=== PATIENT | male | born 1930 | race Two or more races ===

== ENCOUNTER 2017-05-27 22:38 | Emergency (ER) | payer OTHER ==
[~2017-05-27] VITALS: Ht 182.9 cm; Wt 65.3 kg
--- NOTE | 2017-05-27 22:40 | NUR ---
pt bibra fr home for lt ear skin tear w/ lt shoulder pain, +deformity s/p fall fr shower xtoday, unknown ko. pt AOx1, confused w/ resp even & unlabored, hypertensive w/ facial grimacing w/ report pain on movement LUE. limited ROM noted to lt shoulder. pt in gown, on continuous monitoring. Dr. Gonzales at bedside for further eval. pt son at bedside.
--- NOTE | 2017-05-27 22:50 | NUR ---
CLAUDINE started, labs drawn & sent.
[2017-05-27] MEDS ORDERED: MORPHINE SULFATE INJ 2 MG/ML DISP.SYRIN IV ONE (23:00)
--- NOTE | 2017-05-27 23:01 | NUR ---
EMT at bedside for irrigation lt ear skin tear w/ NS.
[2017-05-27] MEDS ORDERED: MORPHINE SULFATE INJ 2 MG/ML DISP.SYRIN ONE (23:03)
[2017-05-27 23:10] LABS: BASOPHILS % (AUTO) 0.5 % (0.0-2.0); EOSINOPHILS # (AUTO) 0.1 /CMM (0.0-0.7); EOSINOPHILS % (AUTO) 1.8 % (0.0-6.0); HEMATOCRIT 40 % (39-51); HEMOGLOBIN 13.3 g/dL (13.5-17.5); LYMPHOCYTES # (AUTO) 2.8 /CMM (0.8-4.8); MEAN CORPUSCULAR HEMOGLOBIN 31 PG (26.0-33.0); MEAN CORPUSCULAR HGB CONC 33 g/dl (31.0-36.0); MEAN CORPUSCULAR VOLUME 93 fL (80-96); MONOCYTES # (AUTO) 0.5 /CMM (0.1-1.30); NEUTROPHILS # (AUTO) 3.8 /CMM (1.8-8.9); NEUTROPHILS % (AUTO) 52.7 % (43.0-81.0); PLATELET COUNT (AUTO) 137 /CMM (150-450); RDW COEFFICIENT OF VARIATION 15.1 (11.5-15.0); RED BLOOD CELL COUNT(AUTO) 4.35 MIL/uL (4.5-6.0); WHITE BLOOD COUNT (AUTO) 7.3 K/uL (4.3-11.0)
[2017-05-27 23:20] LABS: CALCIUM, SERUM 8.6 mg/dL (8.5-10.1); CARBON DIOXIDE 30 mmol/L (21-32); CHLORIDE 109 mmol/L (98-107); CREATININE 1.7 mg/dL (0.6-1.3); GLUCOSE 135 mg/dL (74-106); POTASSIUM 4.4 mmol/L (3.5-5.1); SODIUM SERUM 144 mmol/L (136-145); UREA NITROGEN, BLOOD 34 mg/dL (7-18)
[2017-05-27 23:23] LABS: INR 1.17 (0.87-1.13); PROTHROMBIN TIME 12.7 SECS (9.5-12.7)
--- NOTE | 2017-05-27 23:27 | NUR ---
CXR w/ XR lt shoulder at bedside.
[2017-05-27 23:29] LABS: TROPONIN I < 0.017 ng/mL (0.00-0.056)
--- NOTE | 2017-05-27 23:41 | NUR ---
pt sent to CT via [facility].
[2017-05-28] MEDS ORDERED: MORPHINE SULFATE INJ 2 MG/ML DISP.SYRIN IV ONE
--- NOTE | 2017-05-28 00:03 | NUR ---
pt back fr CT, unable to lie still for CT. MD notified.
[2017-05-28] MEDS ORDERED: MORPHINE SULFATE INJ 2 MG/ML DISP.SYRIN ONE (00:18)
[2017-05-28] MEDS ORDERED: HALOPERIDOL LACTATE INJ 5 MG/ML VIAL ONE (00:46)
--- NOTE | 2017-05-28 00:46 | NUR ---
pt continues to be restless, unable to lie still for CT. MD notified. Will medicate as ordered. On continous pulse-ox w/ cardiac monitoring. pt son at bedside.
--- NOTE | 2017-05-28 00:48 | NUR ---
Dr. Gonzales at bedside for application mily lt tympanic head lac.
[2017-05-28] MEDS ORDERED: HALOPERIDOL LACTATE INJ 5 MG/ML VIAL IM ONE (01:00)
--- NOTE | 2017-05-28 01:04 | NUR ---
pt resting comfortably in bed w/ resp even & unlabored, nad noted. Sent to CT via [employer].
--- NOTE | 2017-05-28 01:26 | NUR ---
pt back fr CT, resp even & unlabored, nad noted. On continuous monitoring.
--- NOTE | 2017-05-28 01:50 | NUR ---
PT SENT TO CT VIA [facility].
[2017-05-28] MEDS ORDERED: MIDAZOLAM HCL 2 MG/2ML VIAL ONE (01:57)
--- NOTE | 2017-05-28 01:57 | NUR ---
CALLED [facility] FOR DOCTOR TO DOCTOR
[2017-05-28] MEDS ORDERED: MIDAZOLAM HCL 2 MG/2ML VIAL IV ONE (02:00)
--- NOTE | 2017-05-28 02:02 | NUR ---
pt continues to be restless, unable to lie still for CT. MD notified. Medicated as ordered for restlessness. On continuous monitoring.
--- NOTE | 2017-05-28 02:26 | NUR ---
RECEIVED CALL FROM GAUDENCIO GERBER; CALL TRANSFERED TO DR. COLEY.
--- NOTE | 2017-05-28 02:28 | NUR ---
Dr. Gonzales updating pt son on pt status at nurse's station.
--- NOTE | 2017-05-28 02:38 | NUR ---
pt resting comfortably in bed w/ resp even & unlabored, nad noted. On continuous monitoring. EMT at bedside for application dry, nonadherent gauze dressing w/ kerlex to lt ear & head.
--- NOTE | 2017-05-28 03:31 | NUR ---
Dr. Gonzales at bedside for update on pt status w/ discharge instructions. hard c-collar applied w/ lt shoulder immobilizer.
--- NOTE | 2017-05-28 03:41 | NUR ---
Pt changed into clothing, assisted to w/c w/ resp even & unlabored, nad noted. IV removed. Catheter intact and site benign. Pressure and 4x4 applied to site. No bleeding noted.Patient discharged to home in stable condition. Written and verbal after care instructions given. Patient verbalizes understanding of instruction.
[2017-05-28 03:45] VITALS: BP 133/86
== END 2017-05-28 03:45 | disposition home or self-care (01) ==
LOC: ER 22:39
DX: S42.212A Unspecified displaced fracture of surgical neck of left humerus, initial encounter for closed fracture (principal); S01.01XA Laceration without foreign body of scalp, initial encounter; S01.312A Laceration without foreign body of left ear, initial encounter; S00.432A Contusion of left ear, initial encounter; F03.90 Unspecified dementia, unspecified severity, without behavioral disturbance, psychotic disturbance, mood disturbance, and anxiety; R79.89 Other specified abnormal findings of blood chemistry; Z86.718 Personal history of other venous thrombosis and embolism; W18.39XA Other fall on same level, initial encounter; Y93.89 Activity, other specified; Y92.002 Bathroom of unspecified non-institutional (private) residence as the place of occurrence of the external cause; Y99.9 Unspecified external cause status
CPT/HCPCS: 36415; 70450-TC; 71010-TC; 72125-TC; 73030-TC; 73200-TC; 80048-TC; 82962-TC; 84484-TC; 85025-TC; 85730-TC; A4606; A6402; J1630; J2250; J2270; L0172; Z7610